=== PATIENT | male | born 1975 | race Caucasian/White ===

== ENCOUNTER → 2021-06-13 | Day surgery (SDC) | payer BC ==
[2021-06-12 12:22] VITALS: BMI 30.7
[~2021-06-13] MED LIST: KETAMINE 10 MG/ML 20 ML VIAL ONE; LIDOCAINE 1% INJ 10MG/ML (20 ML MDV) ONE; MIDAZOLAM 2 MG/2 ML VIAL ONE; PROPOFOL 10 MG/ML 20 ML VIAL IV ONE; SODIUM CHLORIDE 0.9% 500 ML 500 ML IV ONE; fentaNYL (PF) 50 MCG/ML 2 ML AMP ONE
[2021-06-13 11:55] VITALS: BP 136/86; PULSE 72; RESP 16; TEMP 98.6
[2021-06-13 12:08] LABS: Glucose 98 mg/dL (74-99)
[2021-06-13 12:09] LABS: African American GFR (CKD) >90 (>60 ml/min/1.73 sqM); Anion Gap 9 mmol/L; Blood Urea Nitrogen 18 mg/dL (9-20); Carbon Dioxide 31 mmol/L (22-30); Chloride 101 mmol/L (98-107); Non-African American GFR(CKD) >90 (>60 ml/min/1.73 sqM); Sodium 141 mmol/L (137-145)
[2021-06-13] MEDS: BENZOCAINE SPRAY 1 CAN TOPICAL ONE ×2 (12:57→13:14)
--- NOTE | 2021-06-13 14:02 | ECHOT ---
TRANSESOPHAGEAL ECHOCARDIOGRAM DATE OF SERVICE: June 13, 2021 PERFORMING PHYSICIAN: Qasim Mendez MD. PROCEDURE PERFORMED: Transesophageal echocardiogram. INDICATION: Rule out patent foramen ovale in this 45-year-old gentleman who was diagnosed recently with syncope, and there was a concern about patent foramen ovale. COMPLICATION: None. LEVEL OF SEDATION: Moderate with sedation length of 15 minutes. PROCEDURE DESCRIPTION: INDICATION: LEVEL OF SEDATION: Conscious sedation PROCEDURE: DESCRIPTION After obtaining informed consent the patient was brought to the transesophageal echocardiogram suite. A pulse oximetry and heart rate monitors were attached the patient. Subsequently, the transesophageal echocardiogram was advanced through the bite guard to the mid esophageal where 2D echocardiogram images, as well as color Doppler images, of various cardiac structures were obtained. The procedure was performed using propofol with [employer] in the room. FINDINGS: The left ventricular dimension and systolic function appeared to be within normal limits. Right ventricle dimension and systolic function appeared to be within normal limits. The left atrium and right atrium appeared to be within normal limits. The left atrial appendage appeared to be intact. The aortic valve appeared to be trileaflet valve without stenosis or regurgitation. The mitral valve seems to be normal with mild MR. There was mild tricuspid regurgitation seen. The interatrial septum appeared to be slightly hyperdynamic with evidence of patent foramen ovale and [id number] shunt. CONCLUSION: 1. Patent foramen ovale with evidence of aogag-fe-hasb shunt. 2. The interatrial septum appeared to be hyperdynamic. 3. Normal left ventricular dimension and systolic function. 4. Normal cardiac chamber sizes. 5. Normal aortic root dimension. 6. No evidence of a cardiac effusion. MMODL / IJN: [id number] /
== END ==
LOC: CATHCVL 11:16
PROVIDERS: ATTEND Internal Medicine Interventional Cardiology
DX: Q21.1 Atrial septal defect (principal); E78.5 Hyperlipidemia, unspecified; G47.33 Obstructive sleep apnea (adult) (pediatric); F41.9 Anxiety disorder, unspecified; F32.9 Major depressive disorder, single episode, unspecified; K21.9 Gastro-esophageal reflux disease without esophagitis; Z88.1 Allergy status to other antibiotic agents; Z88.8 Allergy status to other drugs, medicaments and biological substances; Z79.899 Other long term (current) drug therapy; E20.9 Hypoparathyroidism, unspecified
CPT/HCPCS: 93312; 93320; 93325; 80048; J2250; J2001; J3010; J2704

== ENCOUNTER → 2021-07-28 | Outpatient (CLI) | payer BC ==
[2021-07-28 11:13] LABS: HCT 50.4 % (39.0-53.0); MCH 27.9 pg (25.0-35.0); MCHC 31.8 g/dL (31.0-37.0); MCV 87.9 fL (80.0-100.0); Mean Platelet Volume 7.9; Platelet Count 270 k/uL (150-450); RBC 5.73 m/uL (4.30-5.90); RDW 13.1 % (11.5-15.5); WBC 6.3 k/uL (3.8-10.6)
[2021-07-28 11:30] LABS: African American GFR (CKD) >90 (>60 ml/min/1.73 sqM); Anion Gap 9 mmol/L; Blood Urea Nitrogen 11 mg/dL (9-20); Carbon Dioxide 30 mmol/L (22-30); Chloride 102 mmol/L (98-107); Non-African American GFR(CKD) >90 (>60 ml/min/1.73 sqM); Potassium 4.5 mmol/L (3.5-5.1); Sodium 141 mmol/L (137-145)
== END | disposition home or self-care (01) ==
LOC: LABPAT 10:54
PROVIDERS: ATTEND Internal Medicine Interventional Cardiology
DX: Z01.812 Encounter for preprocedural laboratory examination (principal); Q21.1 Atrial septal defect
CPT/HCPCS: 80051; 82565; 84520; 85027

== ENCOUNTER 2021-08-01 07:05 | Day surgery (SDC) | payer BC ==
[2021-07-27 10:10] VITALS: BMI 29.2
[~2021-08-01 07:05] MED LIST changes: +ALPRAZolam 0.25 MG TAB PO PRN; +ALPRAZolam 0.5 MG TAB PO PRN; +ASPIRIN 325 MG TAB PO ONE; +ATORVASTATIN 80 MG TAB PO ONE; +HEPARIN SODIUM,PORCINE 10,000 UNIT in SODIUM CHLORIDE 0.9% 1,000 ML IRRIGATION PRN; +HEPARIN SODIUM,PORCINE 2,500 UNIT in SODIUM CHLORIDE 0.9% 250 ML IRRIGATION PRN; -KETAMINE 10 MG/ML 20 ML VIAL ONE; -LIDOCAINE 1% INJ 10MG/ML (20 ML MDV) ONE; -MIDAZOLAM 2 MG/2 ML VIAL ONE; +NITROGLYCERIN SL TABS 0.4 MG TAB SUBLINGUAL PRN; -PROPOFOL 10 MG/ML 20 ML VIAL IV ONE; -SODIUM CHLORIDE 0.9% 500 ML 500 ML IV ONE; -fentaNYL (PF) 50 MCG/ML 2 ML AMP ONE
[2021-08-01] MEDS ORDERED: SODIUM CHLORIDE 0.9% 1,000 ML IV ONE (07:18)
[2021-08-01] MEDS ORDERED: SODIUM CHLORIDE 0.9% 1,000 ML in EMPTY BAG 1 BAG IV ONE (07:30)
[2021-08-01] MEDS ORDERED: HEPARIN SODIUM 1,000 UN/ML (10ML VL) ONE (08:55)
[2021-08-01] MEDS ORDERED: LIDOCAINE 1% INJ 10MG/ML (20 ML MDV) ONE (08:55)
[2021-08-01] MEDS ORDERED: fentaNYL (PF) 50 MCG/ML 2 ML AMP ONE (09:08)
[2021-08-01] MEDS: fentaNYL (PF) 50 MCG/ML 2 ML AMP IV ONE ×2 (09:18→09:21)
[2021-08-01] MEDS ORDERED: MIDAZOLAM 2 MG/2 ML VIAL IV ONE ×2 (09:18→09:34)
[2021-08-01] MEDS ORDERED: LIDOCAINE 1% INJ 10MG/ML (20 ML MDV) SQ ONE ×2 (09:20→09:24)
[2021-08-01] MEDS ORDERED: HEPARIN SODIUM 1,000 UN/ML (10ML VL) IV ONE (09:29)
[2021-08-01] MEDS ORDERED: CLOPIDOGREL 75 MG TAB ONE (09:51)
[2021-08-01] MEDS ORDERED: CLOPIDOGREL 75 MG TAB PO ONE (09:53)
[2021-08-01] MEDS ORDERED: IOPAMIDOL-250 100ML BTL IV ONE (09:54)
--- NOTE | 2021-08-01 10:08 | P.PCN ---
Date of Procedure: 08/01/21 Operative Findings: PERCUTANEOUS CLOSURE OF PATENT FORAMEN OVALE (PFO) PERFORMING PHYSICIAN: Qasim Mendez MD, [facility] PROCEDURE PERFORMED: 1. Successful percutaneous closure of fenestrated atrial septal defect (PFO) using 25 mm Amplatzer PFO Occluder with an excellent results and without any residual shunt. 2. Intracardiac echocardiogram imaging. 3. Right atrial angiogram 4. Ultrasound-guided access of the right common femoral vein 2 5. Successful hemostasis of the right common femoral vein using Vascade MVP INDICATION: This is a pleasant 45-year-old gentleman who was diagnosed recently was patent foramen ovale after he was experiencing symptoms of shortness of breath associated with hypoxemia wasn't documented by pulse oximetry. 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 APPROACH: Right common femoral vein 2 COMPLICATION: None. LEVEL OF SEDATION: Moderate with sedation length of 34 minutes. PROCEDURE DESCRIPTION: After obtaining informed consent, the patient was brought to the cardiac pathology laboratory aide. The right common femoral vein was cannulated x2 using micropuncture technique under ultrasound guidance, the micropuncture wire passed easily, then I placed two 8- Armenian sheath in the right groin. Subsequently I cannulated the left common femoral vein with the same technique and I placed an 8-Armenian sheath there as well. At that point, anticoagulation was initiated using heparin and the patient was given a bolus of 8,000 units of heparin IV with continuous ACT monitoring throughout the procedure. After that, the intracardiac echocardiogram probe was advanced through one of the venous sheath all the way to the right atrium where we did interrogate the interatrial septum and identified the patent foramen ovale which was measured about 35 mm. Subsequently, I did cross the patent foramen ovale using 0.035 J-Glidewire with the backup support of multipurpose catheter. The wire was advanced all the way to the left upper pulmonary vein and subsequently the catheter was advanced over the wire to the left upper pulmonary vein. The 0.035 wire was pulled out and then I advanced a aria wire. Subsequently, the multipurpose catheter was withdrawn out and the wire was left in the left upper pulmonary vein. After that, I did prep the Amplatzer PFO occluder under saline. The device was loaded into the tank car loader, which was attached to the sheath. Subsequently, I did exchange my 8-Armenian sheath into the Shuttle sheath over a 0.035 aria wire. The sheath was advanced all the way under fluoroscopy guidance to the left atrium. Subsequently, the dilator of the sheath was withdrawn out along with the wire. After that, I did load the Amplatzer occluder under continuous saline flush to the sheath. The device was advanced all the way through the sheath were I did where I did deploy initially the left atrial occluder and then I pulled back the sheath and the left atrial occluder all the way to the interatrial septum and then I deployed the right atrial occluder after that. Before I released the device, I did interrogate the septum using ice images on multiple views. After I realized that the device was stable enough and in good position the device was released. Interrogation using ice was also performed after the device was released. By the end I did right atrial angiogram. The procedure was completed without any complication. POSTPROCEDURE MANAGEMENT: 1. Dual anti-platelet therapy. 2. An echo in 24 hours, in 1 week, in 4 weeks, as well as in 6 months. 5. Follow up
[2021-08-01] MEDS ORDERED: SODIUM CHLORIDE 0.9% 1,000 ML IV SCH (10:15)
[2021-08-01] MEDS: methocarbamoL 750 MG TAB PO SCH ×2 (17:11→23:23)
[2021-08-01] MEDS: GABAPENTIN 300 MG CAP PO SCH ×2 (17:11→21:26)
[2021-08-01] MEDS: CHOLECALCIFEROL 25 MCG (1000 IU) TABLET PO SCH (21:12)
[2021-08-01] MEDS: CALCIUM CARB-VIT D 500 MG-5 MCG TAB PO SCH (21:12)
[2021-08-01] MEDS: DOCUSATE 100 MG CAP PO SCH (21:12)
[2021-08-01] MEDS: PANTOPRAZOLE 40 MG TABLET PO SCH (21:21)
[2021-08-01] MEDS: HYDROcodone/APAP 7.5-325MG 1 EACH TAB PO PRN (21:26)
[2021-08-02 04:24] VITALS: RESP 18
[2021-08-02] MEDS: PANTOPRAZOLE 40 MG TABLET PO SCH (06:26)
--- NOTE | 2021-08-02 07:35 | XR ---
EXAMINATION TYPE: XR chest 2V DATE OF EXAM: 08/02/2021 COMPARISON: None INDICATION: ASD TECHNIQUE: Frontal and lateral views of the chest are obtained. FINDINGS: The heart size is normal. The pulmonary vasculature is normal. The lungs are clear. Post cervical fusion changes are evident. IMPRESSION: 1. No acute pulmonary process.
[2021-08-02 08:54] VITALS: BP 131/92; PULSE 83; TEMP 97.4
[2021-08-02] MEDS: GABAPENTIN 300 MG CAP PO SCH (08:54)
[2021-08-02] MEDS: DOCUSATE 100 MG CAP PO SCH (08:54)
[2021-08-02] MEDS: CALCIUM CARB-VIT D 500 MG-5 MCG TAB PO SCH (08:55)
[2021-08-02] MEDS: CHOLECALCIFEROL 25 MCG (1000 IU) TABLET PO SCH (08:55)
[2021-08-02] MEDS: methocarbamoL 750 MG TAB PO SCH (08:55)
[2021-08-02] MEDS: HYDROcodone/APAP 7.5-325MG 1 EACH TAB PO PRN (08:59)
[2021-08-02] MEDS ORDERED: CLOPIDOGREL 75 MG TAB PO SCH (09:00)
[2021-08-02] MEDS ORDERED: FLUoxetine HCL 20 MG CAP PO SCH (09:00)
[2021-08-02] MEDS ORDERED: ASPIRIN 325 MG TAB PO SCH (09:00)
--- NOTE | 2021-08-02 10:56 | DS ---
DISCHARGE SUMMARY ADMISSION DATE: 08/01/2021. DISCHARGE DATE: 08/02/2021 BRIEF HISTORY: This is a very pleasant 45-year-old gentleman who underwent yesterday successful percutaneous closure of patent fenestrated interatrial septum using 25 mm Amplatzer PFO occluder with an excellent angiographic results and without any residual shunt. The patient was seen this morning. The right groin appeared to be soft with mild tenderness. No discrete hematoma noted. The patient is going to be discharged home on dual anti-platelet therapy and I will follow up with the patient in a week in the office. Please note that the echocardiogram was reviewed and showed stable interatrial septum device without any evidence of pericardial effusion. MMODL / IJN: [id number] /
--- NOTE | 2021-08-02 17:50 | ECHOF ---
Referral Reason:Post ASD/PFO Insertion MEASUREMENTS -------- HEIGHT: 165.1 cm WEIGHT: 90.7 kg BP: IVSd: 1.4 cm (0.6 - 1.1) LVIDd: 3.2 cm (3.9 - 5.3) LVPWd: 1.5 cm (0.6 - 1.1) EDV(Teich): 40 ml IVSs: 2.4 cm LVIDs: 1.7 cm LVPWs: 2.4 cm %IVS Thck: 65 % ESV(Teich): 9 ml EF(Teich): 78 % %FS: 46 % SV(Teich): 32 ml RVIDd: 2.8 cm (< 3.3) FINDINGS -------- Limited Study The left ventricular size is normal. There is moderate concentric left ventricular hypertrophy. O verall left ventricular systolic function is normal with, an EF between 55 - 60 %. There is an interatrial closure device in place without evidence of shunt. There is no pericardial effusion. CONCLUSIONS -------- 1. The left ventricular size is normal. 2. There is moderate concentric left ventricular hypertrophy. 3. Overall left ventricular systolic function is normal with, an EF between 55 - 60 %. 4. There is an interatrial closure device in place without evidence of shunt. 5. There is no pericardial effusion. COIN MACHINE SERVICE REPAIRER: Zakia Culver [facility]
== END 2021-08-02 15:45 | disposition home or self-care (01) ==
LOC: CATHCVL 07:05 → 3SCARD 10:02 → CATHCVL 08-02 15:45
PROVIDERS: ATTEND Internal Medicine Interventional Cardiology
DX: Q21.1 Atrial septal defect (principal); E78.5 Hyperlipidemia, unspecified; Z82.49 Family history of ischemic heart disease and other diseases of the circulatory system
CPT/HCPCS: 93580; 93308; 93581; 93662; 86900; 86901; 86850; 71046; C1769 ×5; C1894; C1817; C1760; J2250; J0690; J2001; J3010; J1644; Q9966